=== PATIENT | female | born 1980 | race Asian ===

== ENCOUNTER → 2020-09-11 | Outpatient (CLI) | payer OTHER | END | disposition home or self-care (01) | LOC: LB 17:22 | DX: Z11.3 Encounter for screening for infections with a predominantly sexual mode of transmission (principal) ==

== ENCOUNTER → 2020-09-15 | Outpatient (CLI) | payer OTHER ==
[2020-09-15 10:02] LABS: ALBUMIN 3.9 g/dL (3.4-5.0); ALKALINE PHOSPHATASE 47 U/L (46-116); ALT/SGPT 34 U/L (14-59); AST/SGOT 18 U/L (15-37); BILIRUBIN TOTAL 0.5 mg/dL (0.20-1.00); CALCIUM 8.9 mg/dL (8.5-10.1); CARBON DIOXIDE 29.9 mmol/L (21-32); CHLORIDE SERUM 102 mmol/L (98-107); CHOLESTEROL 189 mg/dL (<200); CHOLESTEROL/HDL RATIO 3.6; CREATININE SERUM 0.6 mg/dL (0.6-1.0); GFR1 > 60 mL/min; GLUCOSE SERUM 133 mg/dL (74-106); HDL CHOLESTEROL 52 mg/dL (40-60); POTASSIUM SERUM 3.9 mmol/L (3.5-5.1); SODIUM SERUM 140 mmol/L (136-145); TOTAL PROTEIN, SERUM 7.9 g/dL (6.4-8.2); TRIGLYCERIDES 153 mg/dL (<150)
== END | disposition home or self-care (01) ==
LOC: LB 09:11
DX: E11.65 Type 2 diabetes mellitus with hyperglycemia (principal)

== ENCOUNTER → 2020-10-17 | Outpatient (CLI) | payer OTHER | END | disposition home or self-care (01) | LOC: US 15:49 | PROC: BW4GZZZ Ultrasonography of Pelvic Region (ICD-10-PCS; principal; 2020-10-17) | DX: N93.9 Abnormal uterine and vaginal bleeding, unspecified (principal) ==